=== PATIENT | male | born 1955 | race Caucasian/White ===

== ENCOUNTER 2017-01-06 14:57 | Emergency (ER) | payer BC ==
[~2017-01-06] VITALS: Ht 177.8 cm; Wt 122.7 kg
[~2017-01-06 14:57] MED LIST: ASPI-860 PO; ENOX120D SQ; IBUP-1772 PO; INSA10V SC; INSU100V13 SQ; LSNP10T PO; OXYC-109 PO; OXYC1TAB8 PO; ROSU10TA PO; WARF5TAB PO; [UNRECOGNIZED DRUG - OTHER] SQ; [UNRECOGNIZED DRUG - OTHER] SQ
--- OUTSIDE RECORDS SUMMARY | 2017-01-06 15:06 | XMS REPORT | Continuity of Care Document ---
Author Author [facility] Organization [facility] Address Unknown Phone Unavailable Support Name Relationship Address Phone ASHLEY GILMORE MD Caregiver [address] [place] [address] SHAD CHOW MD Caregiver [address] [place] [address] ANANTH BARNETT MD Caregiver [address] [place] [address] MICHAEL GRIFFIN Next Of Kin [address] [facility] [address] [place] [id number] Insurance Providers Payer Name Policy Number Subscriber Name Relationship Self Pay Wilfredo Griffin 20 Self / Same As Patient Chief Complaint and Reason for Visit Chief Complaint SEPSIS/CELLULITIS/DIABETES/LEUKOCYTOSIS Reason for Visit Sepsis Cellulitis Leukocytosis Diabetes SIRS (systemic inflammatory response syndrome) Sepsis Cellulitis of scrotum Problems Medical Problems Problem Onset Date Status Sepsis Unknown Active Cellulitis Unknown Active Leukocytosis Unknown Active Diabetes Unknown Active SIRS (systemic inflammatory response syndrome) 01/28/2015 Active Sepsis 01/28/2015 Active Cellulitis of scrotum 01/28/2015 Active Medications Medication Dose Route Sig Days/Qty Instructions Order Date Discontinued Date Status [Relion N] 45 Unit SQ TWICE A DAY 01/28/15 Active [Relion R] 40 Unit SQ THREE TIMES DAILY WITH MEALS 01/28/15 Active Social History No social history. Hospital Discharge Instructions Patient's Instructions Instructions Plan of Care Discharge Date 01/30/15 7:45pm Disposition 02 XFER S[facility]-TRM HOSP - ACUTE Prescriptions See Medications Section Functional Status No functional status results. Allergies, Adverse Reactions, Alerts Allergen Type Severity Reaction Status Last Updated No Known Drug Allergies Active 01/28/15 Immunizations No immunization records. Vital Signs Acute Vital Signs Vital Response Date/Time Temperature (Fahrenheit) 96.7 Pulse 74 bpm Respirations 20 Height 5 ft 10 in Weight 270 lb Body Mass Index 38.7 kg/m^2 Results Test Source Date Result Interp. Ref. Range Comments Absolute Band Neutrophils January 30, 2015 5:10am 0.4 # Collected by nurse? N Alanine Aminotransferase (ALT/SGPT) January 28, 2015 7:00pm 55 U/L N 30-65 Albumin January 30, 2015 5:10am 3.0 g/dL DL 3.4-5.0 Collected by nurse? N Albumin/Globulin Ratio January 28, 2015 7:00pm 1.187 N 1.1-1.8 Alkaline Phosphatase January 28, 2015 7:00pm 100 U/L N 38-126 Anion Gap January 30, 2015 5:10am 13.8 MEQ/L N 3-15 Collected by nurse? N Aspartate Amino Transf (AST/SGOT) January 28, 2015 7:00pm 69 U/L H 15-37 BUN/Creatinine Ratio January 28, 2015 7:00pm 18 N 10-20 Band Neutrophils % January 30, 2015 5:10am 3 % N 0-6 Collected by nurse? N Basophils # (Auto) January 30, 2015 5:10am Collected by nurse? N Basophils % (Manual) January 30, 2015 5:10am 0 % N 0-2 Collected by nurse? N Basophils (%) (Auto) January 30, 2015 5:10am Collected by nurse? N 0-2 Blood Morphology Comment January 30, 2015 5:10am Normal NORMAL Collected by nurse? N Blood Urea Nitrogen January 30, 2015 5:10am 16 mg/dL N 7-18 Collected by nurse? N C-Reactive Protein January 30, 2015 5:10am 39.80 mg/dL H 0.0-0.9 Collected by nurse? N Calcium Level January 30, 2015 5:10am 8.3 mg/dL L 8.8-10.8 Collected by nurse? N Calcium/Ionized Calcium Ratio January 28, 2015 7:00pm 3.9 mg/dL N 3.8-4.6 Calculated Osmolality January 28, 2015 7:00pm 266 mosm/L L 280-300 Carbon Dioxide Level January 30, 2015 5:10am 24 mmol/L N 22-29 Collected by nurse? N Chloride Level January 30, 2015 5:10am 101 mmol/L N 98-108 Collected by nurse? N Creatinine January 30, 2015 5:10am 0.85 mg/dL N 0.8-1.5 Collected by nurse ? N Differential Total Cells Counted January 30, 2015 5:10am 100 Collected by nurse? N Eosinophils # January 30, 2015 5:10am 0.0 # Collected by nurse? N Eosinophils # (Auto) January 30, 2015 5:10am Collected by nurse? N Eosinophils % (Manual) January 30, 2015 5:10am 0 % N 0-4 Collected by nurse ? N Eosinophils (%) (Auto) January 30, 2015 5:10am Collected by nurse? N 0-4 Estimat Glomerular Filtration Rate January 30, 2015 5:10am 112.4 Collected by nurse? N Estimated GFR (Non- January 30, 2015 5:10am 92.9 Collected by nurse? N Glucose Level January 30, 2015 5:10am 230 mg/dL DH 70-110 Collected by nurse? N Hematocrit January 30, 2015 5:10am 42.70 % N 39.00-50.00 Collected by nurse ? N Hemoglobin January 30, 2015 5:10am 14.5 g/dL N 13.5-17.0 Collected by nurse ? N Hemoglobin A1c January 28, 2015 7:00pm 11.6 % H 4.0-6.0 Collected by nurse ? N Lymphocytes # January 30, 2015 5:10am 0.8 # Collected by nurse? N Lymphocytes # (Auto) January 30, 2015 5:10am Collected by nurse? N Lymphocytes % (Manual) January 30, 2015 5:10am 6 % L 20-46 Collected by nurse? N Lymphocytes (%) (Auto) January 30, 2015 5:10am Collected by nurse? N 20- 46 Mean Corpuscular Hemoglobin January 30, 2015 5:10am 30.2 PG N 26.0-34.0 Collected by nurse? N Mean Corpuscular Hemoglobin Concent January 30, 2015 5:10am 34.0 g/dL N 31.0 -37.0 Collected by nurse? N Mean Corpuscular Volume January 30, 2015 5:10am 89 FL N 80-100 Collected by nurse? N Mean Platelet Volume January 30, 2015 5:10am 9.2 FL N 6.0-9.5 Collected by nurse? N Monocytes # January 30, 2015 5:10am 0.4 # Collected by nurse? N Monocytes # (Auto) January 30, 2015 5:10am Collected by nurse? N Monocytes % (Manual) January 30, 2015 5:10am 3 % N 3-11 Collected by nurse ? N Monocytes (%) (Auto) January 30, 2015 5:10am Collected by nurse? N 3-11 Neutrophils # January 30, 2015 5:10am 11.4 # Collected by nurse? N Neutrophils # (Auto) January 30, 2015 5:10am Collected by nurse? N Neutrophils (%) (Auto) January 30, 2015 5:10am Collected by nurse? N 51- 67 Phosphorus Level January 30, 2015 5:10am 2.9 mg/dL N 2.4-4.9 Collected by nurse? N Platelet Count January 30, 2015 5:10am 167 10^3uL N 150-450 Collected by nurse? N Potassium Level January 30, 2015 5:10am 3.7 mmol/L N 3.5-5.1 Collected by nurse? N Red Blood Count January 30, 2015 5:10am 4.80 10^6uL N 4.50-5.50 Collected by nurse? N Red Cell Distribution Width January 30, 2015 5:10am 12.4 % N 11.8-15.6 Collected by nurse? N Segmented Neutrophils % January 30, 2015 5:10am 88 % H 51-67 Collected by nurse? N Sodium Level January 30, 2015 5:10am 135 mmol/L N 135-150 Collected by nurse? N Total Bilirubin January 28, 2015 7:00pm 1.2 mg/dL H 0.1-1.0 Total Protein January 28, 2015 7:00pm 7.0 g/dL N 6.4-8.5 Urine Amorphous Sediment January 28, 2015 7:30pm 1+ /HPF H Urine collection method Clean Catch Urine Bacteria January 28, 2015 7:30pm 1+ /HPF Urine collection method Clean Catch Urine Bilirubin January 28, 2015 7:30pm 2+ H Negative Indican, Lodine metabolite and atypical colors mayinterfere with the interpretation of the Bilirubin reaction. Further testing is required for confirmation. Urine Calcium Oxalate Crystals January 28, 2015 7:30pm Urine collection method Clean Catch Urine Clarity January 28, 2015 7:30pm Cloudy Urine collection method Clean Catch Urine Collection Type January 28, 2015 7:30pm Clean catch Urine collection method Clean Catch Urine Color January 28, 2015 7:30pm Dark yellow Urine collection method Clean Catch Urine Glucose (UA) January 28, 2015 7:30pm Negative Negative Urine collection method Clean Catch Urine Hyaline Casts January 28, 2015 7:30pm 2+ /LPF H Urine collection method Clean Catch Urine Ketones January 28, 2015 7:30pm 1+ H Negative Urine collection method Clean Catch Urine Leukocyte Esterase January 28, 2015 7:30pm Negative Negative Urine collection method Clean Catch Urine Mucus January 28, 2015 7:30pm 3+ H Urine collection method Clean Catch Urine Nitrite January 28, 2015 7:30pm Negative Negative Urine collection method Clean Catch Urine Protein January 28, 2015 7:30pm 2+ H Negative Urine collection method Clean Catch Urine RBC January 28, 2015 7:30pm 2-5 /HPF Urine collection method Clean Catch Urine RBC (Auto) January 28, 2015 7:30pm 1+ H Negative Urine collection method Clean Catch Urine Specific [place] January 28, 2015 7:30pm 1.025 1.005-1.030 Urine collection method Clean Catch Urine Squamous Epithelial Cells January 28, 2015 7:30pm 0-2 /LPF Urine collection method Clean Catch Urine Urobilinogen January 28, 2015 7:30pm 4.0 mg/dL H 0.2-1.0 Urine collection method Clean Catch Urine WBC January 28, 2015 7:30pm 0-2 /HPF Urine collection method Clean Catch Urine pH January 28, 2015 7:30pm 5.0 5.0 - 8.0 Urine collection method Clean Catch Volume Urine Centrifuged January 28, 2015 7:30pm 12 ml Urine collection method Clean Catch White Blood Count January 30, 2015 5:10am 12.99 10^3uL H 4.0-11.0 Collected by nurse? N Whole Blood Lactic Acid January 28, 2015 7:00pm 1.3 mmol/L N 0.7-2.1 Blood Culture Peripheral-:Lab Indicates After Collectio January 28, 2015 7:00pm No Growth in 24 hours Procedures No known history of procedures. Encounters Encounter Location Date/Time Admitted Inpatient [facility] 01/28/15 8:51pm Recent Diagnosis Sepsis Cellulitis Leukocytosis Diabetes SIRS (systemic inflammatory response syndrome) Sepsis Cellulitis of scrotum
[2017-01-06] MEDS ORDERED: HYDROmorphone 2 MG/ML (DILAUDID) 1 ML SYRINGE IM ONE (15:40)
[2017-01-06] MEDS ORDERED: DEXAMETHASONE 10 MG/ML (DECADRON) VIAL IM ONE (15:40)
[2017-01-06] MEDS ORDERED: oxycODONE/ACETAMINOPHEN 10MG-325 MG (PERCOCET-10) TABLET PO ONE (15:40)
--- NOTE | 2017-01-06 15:57 | NUR ---
explained to pt unable to get an mri tonight, he asked if he could go to another hospital to get this, i stated we can do it for him, call his pcp tomorrow
[2017-01-06 16:19] VITALS: BP 123/72
== END 2017-01-06 16:19 | disposition home or self-care (01) ==
LOC: EDUNIT# 14:57 → ED 15:02
DX: M54.42 Lumbago with sciatica, left side (principal); M54.41 Lumbago with sciatica, right side; M54.16 Radiculopathy, lumbar region
CPT/HCPCS: 96372; 99282; J1100; J1170

== ENCOUNTER → 2017-01-15 | Outpatient (CLI) | payer BC | LOC: EMS 16:37 | PROVIDERS: ATTEND Internal Medicine | DX: C41.2 Malignant neoplasm of vertebral column (principal) ==

== ENCOUNTER → 2017-01-15 | Outpatient (CLI) | payer BC ==
--- NOTE | 2017-01-15 11:48 | Diagnostic Imaging Report ---
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 Orbits for MRI screening does not show any radiopaque foreign objects in or around the orbits. IMPRESSION: Negative orbits for MRI screening. Dictated by: Dictated on workstation # [id number]
--- NOTE | 2017-01-15 15:11 | Diagnostic Imaging Report ---
PROCEDURE: MRI lumbar spine with and without contrast. TECHNIQUE: Multiplanar, multisequence MRI of the lumbar spine was performed with and without contrast. INDICATION: Low back pain x1 month. FINDINGS: There is noted infiltrative tumor within the T12 vertebral body. There is moderate posterior pulsion of the vertebral body with a soft tissue mass growing through the right posterior elements. There is expansile soft tissue component which is encasing the lower thoracic cord. Minimal canal dimension of 7 mm. This is compressing both nerve root sleeves. This does show diffuse enhancement following IV contrast. The soft tissue expansile component posteriorly involving the right pedicle and lamina measures approximately 3 x 3.3 cm. Good alignment of the lumbar vertebral bodies. The lumbar vertebral body height appears normal. Marrow signal is normal throughout the lumbar vertebral bodies. The L1 through L4-L5 discs appear normal. There is desiccation of the L5-S1 disc with small central disc herniation. This does not appear to be causing significant encroachment at this time. Facets are in good alignment. No evidence of pars defect. Aorta appears normal without aneurysm. IMPRESSION: 1. 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 This most likely represents metastatic lesion. 2. Degenerative disc disease at L5-S1 with small central disc herniation which does not appear to be causing significant encroachment at this time. These findings were called and discussed with Meg Salgado at [facility]. Dictated by: Dictated on workstation # [id number]
== END ==
LOC: RAD 11:12
PROVIDERS: ATTEND Physician Assistant
DX: M54.5 Low back pain (principal); Z77.018 Contact with and (suspected) exposure to other hazardous metals; M51.37 Other intervertebral disc degeneration, lumbosacral region
CPT/HCPCS: 36415; 70140; 72158; 82565; 84520; A9579